=== PATIENT | male | born 1960 | race Caucasian/White ===

== ENCOUNTER → 2016-08-23 | Day surgery (SDC) | payer OTHER ==
[~2016-08-23] MED LIST: VOLTAREN75 MG PO
--- NOTE | ~2016-08-23 | OR ---
Unit #: [id number] #: [id number] Patient: HOUSTON WOODS [id number] [address] [address] [id number] MR#: [id number] NAME: HOUSTON WOODS ROOM: Date of Procedure: 08/23/2016 Admission Date: 08/23/2016 Surgeon: Lester Yeager M.D. : 1960 Attending Physician: Lester Yeager M.D. Referring Physician: Lester Yeager M.D. Primary Care Physician: Sonia Colindres M.D. OPERATIVE REPORT PREOPERATIVE DIAGNOSIS Colorectal cancer screening in an average-risk patient. PROCEDURES PERFORMED Colonoscopy and polypectomy. POSTOPERATIVE DIAGNOSES 1. The patient had two sessile polyps in the mid descending colon. Both were about 4 to 6 mm each and were removed using snare polypectomy. 2. Rest of the examination up to cecum and terminal ileum was normal. The quality of the prep was good. The patient did not have any diverticulosis nor any hemorrhoids. RECOMMENDATIONS Follow up the results of polyp histology and consider repeat colonoscopy in 5 years. SEDATION USED MAC. DESCRIPTION OF PROCEDURE Following detailed explanation of the potential risks and complications of a colonoscopy, namely perforation, bleeding, and complication related to sedation, the patient was brought to GI lab and laid in the left lateral decubitus position. A digital rectal examination was performed, which was normal. Lubricated tip of the Olympus video colonoscope was inserted through the anus and advanced under direct vision. The scope was advanced past rectosigmoid into descending colon. No diverticula were noticed in this area. The scope tip was then navigated all the way up to cecum with visualization of the ileocecal valve and the appendiceal orifice. Preparation was excellent with good visualization and photodocumentation was obtained. Last few inches of the terminal ileum were also visualized after intubation of the ileocecal valve and appeared normal. Successive segments of the colonic mucosa were examined upon withdrawal and appeared unremarkable except for presence of two small sessile polyps in the mid descending colon. These were 4 to 6 mm each, both were removed using snare polypectomy. They were retrieved and sent for histology. No additional polyps were noted. The patient did not have any diverticulosis nor any hemorrhoids. The scope was then withdrawn and the patient returned to recovery area. He tolerated the procedure without any postprocedure complications. Unit #: [id number] #: [id number] Patient: HOUSTON WOODS Dictated by... Isabel Scott/miko TD: 08/23/2016 22:29 JOB #: [id number] OPERATIVE REPORT Page 1 of 1 X Lester Yeager MD PROCEDURE OPERATIVE NOTE
== END | disposition home or self-care (01) ==
LOC: COPS 07:35
DX: Z12.11 Encounter for screening for malignant neoplasm of colon (principal); K63.5 Polyp of colon; I10 Essential (primary) hypertension; J44.9 Chronic obstructive pulmonary disease, unspecified; E66.9 Obesity, unspecified; Z68.34 Body mass index [BMI] 34.0-34.9, adult; F17.210 Nicotine dependence, cigarettes, uncomplicated; Z79.899 Other long term (current) drug therapy
CPT/HCPCS: 88305; J2250